=== PATIENT | male | born 1970 | race African-American/Black ===

== ENCOUNTER 2021-02-24 19:52 | Emergency (ER) | payer OTHER ==
[~2021-02-24] VITALS: Ht 175.3 cm; Wt 79.5 kg
[2021-02-24 20:10] VITALS: BP 131/85
[2021-02-25] MEDS ORDERED: DOXYCYCLINE 100MG CAPSULE PO STA (00:01)
[2021-02-25] MEDS ORDERED: DOXY100C43 PO (00:01)
== END 2021-02-25 00:20 | disposition home or self-care (01) ==
LOC: ER 19:53
DX: L03.317 Cellulitis of buttock (principal); L02.31 Cutaneous abscess of buttock; R11.0 Nausea; R19.7 Diarrhea, unspecified; R50.9 Fever, unspecified; F17.200 Nicotine dependence, unspecified, uncomplicated; F12.90 Cannabis use, unspecified, uncomplicated; Z72.89 Other problems related to lifestyle; Z79.2 Long term (current) use of antibiotics
CPT/HCPCS: 99283